=== PATIENT | female | born 1990 | race Caucasian/White ===

== ENCOUNTER → 2018-02-01 | Outpatient (CLI) | payer MEDICAID | LOC: HPND 12:45 | DX: O99.212 Obesity complicating pregnancy, second trimester (principal); E66.01 Morbid (severe) obesity due to excess calories; Z68.41 Body mass index [BMI] 40.0-44.9, adult; Z36.3 Encounter for antenatal screening for malformations; O36.80X0 Pregnancy with inconclusive fetal viability, not applicable or unspecified | CPT/HCPCS: 76805 ==

== ENCOUNTER 2018-07-21 07:56 | Inpatient (IN) ==
[2018-07-21] MEDS ORDERED: fentaNYL Citrate Inj 100 MCG/2 ML Ampul IV.PUSH PRN (08:13)
[2018-07-21] MEDS ORDERED: Sod Chloride 0.9% Inj 1,000 ML IV.CONT PRN (08:13)
[2018-07-21] MEDS ORDERED: Sodium Chlor 0.9% Inj 500 ML IV.SIG PRN (08:13)
[2018-07-21] MEDS ORDERED: Naloxone Inj 0.4 MG/ML Vial IV.PUSH PRN ×2 (08:13→17:56)
[2018-07-21] MEDS ORDERED: Citric Acid/Sodium Citrate Liq 30 ML UDC PO SCH (08:15)
--- NOTE | 2018-07-21 08:57 | P.HPOB ---
History of Present Illness Primary Care Physician: No Primary Care Physician [facility] History of Present Illness: at 41wks presents for scheduled IOL for post-dates. Denies any cxns, LOF, VB. +FM obhx: uncomplicated u/s follow up for possible LGA ; 8lb9oz last week x 2015 medhx: none surghx: none meds: PNV all: Aspirin - Inpatient Certification I certify that the inpatient services were ordered in accordance with Medicare regulations governing the order. This includes certification that hospital inpatient services are reasonable and necessary and in the case of services not specified as inpatient-only under 42 CFR 419.22(n), that they are appropriately provided as inpatient services in accordance to with the 2-midnight benchmark under 43 CFR 412.3(e) Estimated Total Length of Stay (Days): 3 Plans for Post Hospital Care: Home Review of Systems All other systems reviewed negative except as stated in HPI PMFSH - History History Provided By: Patient - Family History Family History: Family History (Last Updated 06/10/18 @ 05:22 by Kevyn Henry MD) Other Family history non-contributory - Tobacco History Second Hand Smoke Exposure: No Smoking Status: Never smoker - Alcohol History How Often Do You Have a Drink Containing Alcohol: Never - Substance Use History Substance History: No History of Abuse - Travel History Recent Travel in the [place] Within the Last 8 Weeks: No Recent Travel Out of the Country Within the Last 8 Weeks: No - Immunization History Hx Influenza Vaccine This Season: No Medications and Allergies Active Medications: Active Medications Citric Acid/Sodium Citrate (Sodium Citrate/Citric Acid Liq) 30 ml PO PULP OPERATOR [facility] Stop: 07/25/18 08:14 Fentanyl Citrate (Fentanyl Inj) 50 mcg IV.PUSH Q1H PRN PRN Reason: Pain Scale 3 - 5 Fentanyl Citrate (Fentanyl Inj) 100 mcg IV.PUSH Q1H PRN PRN Reason: PAIN SCALE 6 TO 10 Lactated Ringer's (Lr 1000 Ml Inj) 1,000 mls @ 3,000 mls/hr IV.SIG UNSCH PRN PRN Reason: compromise or epidural Sodium Chloride (Ns Inj) 500 mls @ 1,000 mls/hr IV.SIG UNSCH PRN PRN Reason: SEE LABEL COMMENTS Sodium Chloride (Ns Inj) 1,000 mls @ 100 mls/hr IV.CONT .Q10H PRN PRN Reason: SEE LABEL COMMENTS Oxytocin (Pitocin 30 Units/Ns 500 Ml Premix) 30 units in 500 mls @ 999 mls/hr IV.SIG BOLUS ONE Stop: 07/21/18 09:30 Lactated Ringer's (Lr 1000 Ml Inj) 1,000 mls @ 125 mls/hr IV.CONT .Q8H [facility] Lidocaine HCl (Xylocaine 1% Inj) 0.1 ml I-DERMAL PRN PRN PRN Reason: For IV start Stop: 07/24/18 08:12 Lidocaine HCl (Xylocaine 1% Inj) 10 ml INFILTRATN PRN PRN PRN Reason: For episiotomy repair Stop: 07/23/18 08:12 Mineral Oil (Muri-Lube Oil) 10 ml TOPICAL UNSCH PRN PRN Reason: PRN perineal massage Misoprostol (Cytotec) 25 mcg VAGINAL ONCE ONE Stop: 07/21/18 08:53 Misoprostol (Cytotec) 25 mcg VAGINAL ONCE PRN PRN Reason: For cervical ripening Stop: 07/22/18 12:53 Naloxone HCl (Narcan Inj) 0.1 mg IV.PUSH Q2M PRN PRN Reason: for opiate reversal Allergies Allergy/AdvReac Type Severity Reaction Status Date / Time aspirin Allergy Severe Anaphylaxis Verified 06/10/18 05:04 Home Medications Medication Instructions Recorded Confirmed Type vit,[id number] 1 tab PO DAILY 07/21/18 07/21/18 History [PNV 29-1] Exam Vital signs: Vital Signs 07/21/18 08:44 Pulse Rate 108 H Blood Pressure 134/80 Intake & Output 07/20/18 07/21/18 07/21/18 18:59 06:59 18:59 Weight 140.16 kg Other: Weight On Admission 140.16 kg Narrative: GENERAL: Well-nourished, well-developed patient. SKIN: Warm and dry. HEAD: Normocephalic and atraumatic. EYES: No scleral icterus. No injection or drainage. ENT: No nasal drainage noted. Mucous membranes pink. Airway patent. NECK: Supple, trachea midline. No JVD. CARDIOVASCULAR: Regular rate and rhythm without murmurs, gallops, or rubs. RESPIRATORY: Breath sounds equal bilaterally. No accessory muscle use. ABDOMEN/GI: Abdomen soft, non-tender, bowel sounds present, no rebound, no guarding Gravid to 41 weeks size Fundal Height:41 SVE: 0/th/floating GENITOURINARY: External Genitalia: intact and normal in appearance FHT's: Cat 1 , +accels, no decels no cxns on monitor EXTREMITIES: No cyanosis or edema. BACK: Nontender without obvious deformity. No CVA tenderness. NEUROLOGICAL: Awake and alert. Motor and sensory grossly within normal limits. Five out of 5 muscle strength in all muscle groups. Normal speech. Results - Labs CBC & Chem 7: 07/21/18 09:00 Caprini VTE Risk Assessment Caprini VTE Risk Assessment: No/Low Risk (score <= 1) Caprini Risk Assessment Model: Point Value = 1 Point Value = 2 Point Value = 3 Point Value = 5 Age 41-60 Minor surgery BMI > 25 kg/m2 Swollen legs Varicose veins or History of unexplained or recurrent spontaneous Oral contraceptives or hormone replacement Sepsis (< 1 month) Serious lung disease, including pneumonia (< 1 month) Abnormal pulmonary function Acute myocardial infarction Congestive heart failure (< 1 month) History of inflammatory bowel disease Medical patient at bed rest Age 61-74 Arthroscopic surgery Major open surgery (> 45 min) Laparoscopic surgery (> 45 min) Malignancy Confined to bed (> 72 hours) Immobilizing plaster cast Central venous access Age >= 75 History of VTE Family history of VTE Factor V Leiden Prothrombin [id number] Lupus anticoagulant Anticardiolipin antibodies Elevated serum homocysteine Heparin-induced thrombocytopenia Other congenital or acquired thrombophilia Stroke (< 1 month) Elective arthroplasty Hip, pelvis, or leg fracture Acute spinal cord injury (< 1 month) Prophylaxis Regimen: Total Risk Factor Score Risk Level Prophylaxis Regimen 0-1 Low Early ambulation 2 Moderate Order ONE of the following: *Sequential Compression Device (SCD) *Heparin 5000 units SQ BID 3-4 Higher Order ONE of the following medications: *Heparin 5000 units SQ TID *Enoxaparin/Lovenox 40 mg SQ daily (WT < 150 kg, CrCl > 30 mL/min) *Enoxaparin/Lovenox 30 mg SQ daily (WT < 150 kg, CrCl > 10-29 mL/min) *Enoxaparin/Lovenox 30 mg SQ BID (WT < 150 kg, CrCl > 30 mL/min) AND/OR *Sequential Compression Device (SCD) 5 or more Highest Order ONE of the following medications: *Heparin 5000 units SQ TID (Preferred with Epidurals) *Enoxaparin/Lovenox 40 mg SQ daily (WT < 150 kg, CrCl > 30 mL/min) *Enoxaparin/Lovenox 30 mg SQ daily (WT < 150 kg, CrCl > 10-29 mL/min) *Enoxaparin/Lovenox 30 mg SQ BID (WT < 150 kg, CrCl > 30 mL/min) AND *Sequential Compression Device (SCD) Assessment and Plan - Diagnosis (1) 41 weeks gestation of Code(s): Z3A.41 - 41 weeks gestation of Status: Acute Plan: at 41wks presents for scheduled IOL for post-dates. - Admit to L&D - Plan for cytotec induction, place at 9:30AM - Cat 1 tracing, will cont to monitor - MD aware
[2018-07-21] MEDS ORDERED: Oxytocin 30 Units/500ml Premix 30 UNITS/500 ML BAG IV.SIG ONE (09:00)
[2018-07-21 09:24] LABS: Baso % (Auto) 0.3 % (0.0-2.0); Eos # (Auto) 0.1 th/mm3 (0.0-0.4); Eos % (Auto) 0.9 % (0.0-4.0); Hematocrit 38.5 % (35.0-46.0); Hemoglobin 13.5 gm/dL (11.6-15.3); Lymph # (Auto) 1.8 th/mm3 (1.0-4.8); Lymph % (Auto) 17.2 % (9.0-44.0); Mean Corpuscular Hemoglobin 29.1 pg (27.0-34.0); Mean Corpuscular Volume 83.2 fL (80.0-100.0); Mean Platelet Volume 8.4 fL (7.0-11.0); Mono # (Auto) 0.6 th/mm3 (0.0-0.9); Mono % (Auto) 5.7 % (0.0-8.0); Neut # (Auto) 8.1 th/mm3 (1.8-7.7); Neut % (Auto) 75.9 % (16.0-70.0); Platelet Count 294 th/mm3 (150-450); Red Blood Count 4.62 mil/mm3 (4.00-5.30); Red Cell Distribution Width 16.2 % (11.6-17.2); White Blood Count 10.6 th/mm3 (4.0-11.0)
[2018-07-21 09:38] LABS: Bacteria,Urine Moderate /hpf; Bilirubin,Urine Negative (Negative); Clarity,Urine Cloudy (Clear); Color,Urine Yellow (Yellw/Straw); Glucose,Urine (UA) 150 mg/dL (Negative); Leukocyte Esterase,Urine Large (Negative); Mucus,Urine Few /lpf (Occasional); Nitrite,Urine Negative (Negative); Specific Gravity,Urine 1.018 (1.002-1.035); Squamous Epithelial Cell,Urine 43 /hpf (0-5); Transitional Epi Cells,Urine 1 /hpf
[2018-07-21 09:54] LABS: Amphetamine Urine With Conf Neg (Neg); Benzodiazepine Urine With Conf Neg (Neg)
[2018-07-21] MEDS: fentaNYL Citrate Inj 100 MCG/2 ML Ampul IV.PUSH PRN ×2 (13:49→14:58)
[2018-07-21] MEDS ORDERED: fentaNYL 2MCG-Bupiv 0.125% Epi 150 ML EPIDURAL ONE (15:20)
[2018-07-21] MEDS ORDERED: Lidocaine 1%/Epinephrine 1:200,000 PF Inj 30 ML Vial ONE (15:21)
[2018-07-21] MEDS ORDERED: Diphtheria/Tetanus/Pertussis Vaccine Inj 0.5 ML Syringe IM ONE (16:00)
[2018-07-21] MEDS ORDERED: Measles/Mumps/Rubella Vaccine Inj 0.5 ML Vial SQ ONE (16:00)
--- NOTE | 2018-07-21 17:52 | P.OBDELI ---
Weeks Gestation: 41 Patient Started Active Labor: No Medical Induction of Labor: Yes (Post dates ) Medical Induction Start Date: 07/21/18 Artificial Rupture of Membrane: Yes Artificial ROM Date: 07/21/18 Episiotomy: none Vaginal Delivery: Normal Presentation: Occiput anterior Nuchal Cord: x1 Delayed Cord Clamping (45 sec): Yes Placenta: Spontaneous delivery Laceration: Perineal, 2 deg Repair: Chromic running Estimated blood loss (mL): 100 : Female Female A Infant Delivery Date: 07/21/18 Delivery Time: 17:21 Weight: 3.8 kg score (1 min): 8 score (5 min): 9 Additional Information: Delivered by Dr. Linares. Supervised by Dr. Davis
[2018-07-21] MEDS ORDERED: fentaNYL 2MCG-Bupiv 0.125% Epi 150 ML EPIDURAL PRN (17:53)
[2018-07-21] MEDS ORDERED: fentaNYL Citrate Inj 100 MCG/2 ML Ampul EPIDURAL ONE (17:53)
[2018-07-21] MEDS ORDERED: Bisacodyl 10 MG Supp RECTAL PRN (17:56)
[2018-07-21] MEDS ORDERED: Benzocaine 20% Top Spray 60 ML Can TOPICAL PRN (17:56)
[2018-07-21] MEDS ORDERED: Oxytocin 30 Units/500ml Premix 30 UNITS/500 ML BAG IV.CONT PRN (17:56)
[2018-07-21] MEDS ORDERED: Acetaminophen 325 MG Tablet PO PRN (17:56)
[2018-07-21] MEDS ORDERED: Zolpidem Tartrate 5 MG Tablet PO PRN (21:00)
[2018-07-21] MEDS: Senna/Docusate Sodium 8.6/50 MG Tablet PO SCH (22:20)
[2018-07-22] MEDS: Witch Hazel 50%/Glyderin 12.5% 40 Pad Jar RECTAL PRN ×2 (01:13→01:14)
--- NOTE | 2018-07-22 08:03 | P.PNOB ---
Subjective Post day: 1 Interval history: Patient's pain is well-controlled. Patient reports eating and drinking without any nausea or vomiting. Patient reports minimal bleeding. Patient has passed gas but no bowel movements. Patient is walking without lower extremity pain or shortness of breath. Objective Vital Signs/I&O: Vital Signs 07/21/18 08:44 07/21/18 08:55 07/21/18 09:13 Temperature 98.9 F Pulse Rate 108 H 108 H Respiratory Rate 16 Blood Pressure 134/80 07/21/18 09:42 07/21/18 11:41 07/21/18 11:43 Temperature 98.7 F Pulse Rate 97 H 90 Respiratory Rate Blood Pressure 133/78 141/83 H 07/21/18 12:40 07/21/18 14:57 07/21/18 14:58 Temperature 98.8 F Pulse Rate 91 H 98 H Respiratory Rate Blood Pressure 145/79 H 128/100 H 07/21/18 15:35 07/21/18 15:40 07/21/18 15:45 Temperature Pulse Rate 119 H 125 H 111 H Respiratory Rate Blood Pressure 152/83 H 147/81 H 123/64 07/21/18 15:48 07/21/18 15:50 07/21/18 15:55 Temperature Pulse Rate 110 H 110 H Respiratory Rate 18 Blood Pressure 142/87 H 07/21/18 16:01 07/21/18 16:10 07/21/18 16:35 Temperature Pulse Rate 112 H 111 H 116 H Respiratory Rate Blood Pressure 129/63 120/51 L 85/67 L 07/21/18 16:40 07/21/18 17:01 07/21/18 17:32 Temperature Pulse Rate 143 H 128 H 120 H Respiratory Rate Blood Pressure 138/61 143/60 H 131/43 L 07/21/18 17:55 07/21/18 17:56 07/21/18 18:15 Temperature 98.1 F Pulse Rate 113 H 104 H Respiratory Rate 18 Blood Pressure 129/62 101/51 L 07/21/18 18:30 07/21/18 18:45 07/21/18 19:01 Temperature Pulse Rate 109 H 102 H 97 H Respiratory Rate Blood Pressure 114/53 L 138/74 116/75 07/21/18 19:15 07/21/18 19:23 07/21/18 19:45 Temperature 98.9 F Pulse Rate 107 H 106 H Respiratory Rate 18 18 Blood Pressure 113/55 L 113/65 Intake & Output 07/21/18 07/22/18 07/22/18 18:59 06:59 18:59 Intake Total 1999 Balance 1999 Weight 140.16 kg Intake: IV 1999 LR 1000 mL Inj 1,000 ML @ 125 1999 mls/hr IV.CONT .Q8H [facility] Rx#: [id number] Other: Weight On Admission 140.16 kg Result Diagrams: 07/21/18 09:00 Objective Remarks: GENERAL: Well-nourished, well-developed patient. CARDIOVASCULAR: Regular rate and rhythm without murmurs, gallops, or rubs. RESPIRATORY: Breath sounds equal bilaterally. No accessory muscle use. ABDOMEN/GI: Abdomen soft, non-tender. Fundus: Firm, non-tender at umbilicus. GENITOURINARY: Light to moderate bleeding. EXTREMITIES: No cyanosis or edema, non-tender, without signs of DVT. Medications and IVs: Active Medications Acetaminophen (Tylenol) 650 mg PO Q4H PRN PRN Reason: PAIN SCALE 1 TO 2 Last Admin: 07/21/18 22:20 Dose: 650 mg Al Hydroxide/Mg Hydroxide (Milk Of Magnesia Liq) 30 ml PO Q12H PRN PRN Reason: Mild Constipation Benzocaine (Americaine 20% Top [place]) 1 spray TOPICAL Q4H PRN PRN Reason: For Perineum Discomfort Last Admin: 07/22/18 01:18 Dose: 1 spray Bisacodyl (Dulcolax Supp) 10 mg RECTAL DAILY PRN PRN Reason: SEVERE CONSITIPATION Ephedrine Sulfate (Ephedrine/Ns Syringe) 10 mg IV.PUSH UNSCH PRN PRN Reason: SEE LABEL COMMENTS Stop: 07/22/18 17:53 Last Admin: 07/21/18 18:26 Dose: 10 mg Fentanyl/Bupivacaine/Sodium Chlor (Fentanyl 2 Mcg-Bupiv 0.125% Epi) 150 mls @ 12 mls/hr EPIDURAL PRN PRN PRN Reason: for Labor Pain Last Admin: 07/21/18 18:26 Dose: 12 mls/hr Oxytocin (Pitocin 30 Units/Ns 500 Ml Premix) 30 units in 500 mls @ 100 mls/hr IV.CONT UNSCH PRN PRN Reason: Heavy bleeding Ibuprofen (Motrin) 800 mg PO Q8H PRN PRN Reason: For Cramping Lactulose (Lactulose Liq) 30 ml PO DAILY PRN PRN Reason: SEVERE CONSITIPATION Miscellaneous Information (Misc Information) 1 each OTHER UNSCH PRN PRN Reason: SEE LABEL COMMENTS Stop: 07/22/18 17:53 Miscellaneous Information (Misc Information) 1 each OTHER UNSCH PRN PRN Reason: SEE LABEL COMMENTS Stop: 07/22/18 17:53 Misoprostol (Cytotec) 25 mcg VAGINAL ONCE PRN PRN Reason: For cervical ripening Stop: 07/22/18 12:53 Naloxone HCl (Narcan Inj) 0.1 mg IV.PUSH Q2M PRN PRN Reason: for opiate reversal Ondansetron HCl (Zofran Odt) 4 mg PO Q6H PRN PRN Reason: NAUSEA OR VOMITING Oxycodone/Acetaminophen (Percocet 5/325 Mg) 1 tab PO Q4H PRN PRN Reason: PAIN SCALE 3 TO 5 Last Admin: 07/22/18 02:20 Dose: 1 tab Senna/Docusate Sodium (Natividad-Colace) 1 tab PO BID [facility] Last Admin: 07/21/18 22:20 Dose: 1 tab Sennosides (Senokot) 17.2 mg PO Q12H PRN PRN Reason: Moderate Constipation Sodium Chloride (Ns Flush) 2 ml IV.FLUSH BID [facility] Last Admin: 07/21/18 23:20 Dose: Not Given Sodium Chloride (Ns Flush) 2 ml IV.FLUSH PRN PRN PRN Reason: FLUSH AFTER USING IV ACCESS Witch Raisa/Glycerin (Tucks Pads) 1 applicatio RECTAL QID PRN PRN Reason: HEMORRHOIDS Last Admin: 07/22/18 01:14 Dose: 1 applicatio Zolpidem Tartrate (Ambien) 5 mg PO HS PRN PRN Reason: SLEEP Assessment and Plan - Diagnosis (1) Vaginal delivery Code(s): O80 - Encounter for full-term uncomplicated delivery Status: Acute - Plan Patient was counseled to do 6 weeks of pelvic rest. Patient was counseled to follow up in 6 weeks. Patient requested follow-up and contraception. --AF VSS --Continue routine care --Motrin and Percocet when necessary for pain --Encourage OOB --Pelvic rest for 6 weeks will need follow-up appointment at that time. --Contraception: unsure, will cont to discuss --Anticipate discharge at 24hrs ppm (6PM tonight) or tomorrow
[2018-07-22 09:40] VITALS: TEMP 97.6
[2018-07-22] MEDS: Senna/Docusate Sodium 8.6/50 MG Tablet PO SCH ×2 (09:44→21:39)
[2018-07-22] MEDS ORDERED: Famotidine 20 MG Tablet PO ONE (15:00)
--- NOTE | 2018-07-22 15:00 | P.PN ---
Subjective Interval history: [facility] Attending Called to see patient who reports she has an anaphylactic reaction to ASA and ibuprofen. She was asked if she can take Motrin and indicated she has no problems with Motrin because she didn't realize that Motrin was ibuprofen. She reports she took Motrin at 10:50 am and started feeling itchy about 1/2 to 1 hour ago and started feeling like her throat was closing at 14:31. We called for [facility] and immediately came to patient's bedside. VSS, SpO2 99%. On exam, patient is sitting up in bed, appears anxious, but does not appear to be having difficulty breathing but appears. Spoke with anesthesia, Dr. Mccallum, and Dr. Trevino (Elevator Runner). Dr. Trevino agreed with administration of benadryl ( patient had already received 50 mg IV upon our arrival to bedside), and agreed with IV steroids and zantac for one dose. Solumedrol 60mg ordered IV and zantac 150mg IV ordered. Dr. Trevino will come to evaluate patient as well. Will continue scheduled benadryl x24h, monitor closely. Physical Exam Vital signs: Vital Signs 07/21/18 14:57 07/21/18 14:58 07/21/18 15:35 Temperature 98.8 F Pulse Rate 98 H 119 H Respiratory Rate Blood Pressure 128/100 H 152/83 H 07/21/18 15:40 07/21/18 15:45 07/21/18 15:48 Temperature Pulse Rate 125 H 111 H Respiratory Rate 18 Blood Pressure 147/81 H 123/64 07/21/18 15:50 07/21/18 15:55 07/21/18 16:01 Temperature Pulse Rate 110 H 110 H 112 H Respiratory Rate Blood Pressure 142/87 H 129/63 07/21/18 16:10 07/21/18 16:35 07/21/18 16:40 Temperature Pulse Rate 111 H 116 H 143 H Respiratory Rate Blood Pressure 120/51 L 85/67 L 138/61 07/21/18 17:01 07/21/18 17:32 07/21/18 17:55 Temperature Pulse Rate 128 H 120 H 113 H Respiratory Rate 18 Blood Pressure 143/60 H 131/43 L 129/62 07/21/18 17:56 07/21/18 18:15 07/21/18 18:30 Temperature 98.1 F Pulse Rate 104 H 109 H Respiratory Rate Blood Pressure 101/51 L 114/53 L 07/21/18 18:45 07/21/18 19:01 07/21/18 19:15 Temperature Pulse Rate 102 H 97 H 107 H Respiratory Rate Blood Pressure 138/74 116/75 113/55 L 07/21/18 19:23 07/21/18 19:45 07/22/18 08:00 Temperature 98.9 F 97.6 F Pulse Rate 106 H 89 Respiratory Rate 18 18 20 Blood Pressure 113/65 116/74 Intake & Output 07/21/18 07/22/18 07/22/18 18:59 06:59 18:59 Intake Total 1999 Balance 1999 Weight 140.16 kg Intake: IV 1999 LR 1000 mL Inj 1,000 ML @ 125 1999 mls/hr IV.CONT .Q8H [facility] Rx#: [id number] Other: Weight On Admission 140.16 kg Results - Labs CBC & Chem 7: 07/21/18 09:00 Microbiology 07/21/18 08:30 Clean Catch Urine Urine Culture - Final 50-100,000 cfu/mL mixed gram positive christie (probable contaminants)
--- NOTE | 2018-07-22 15:42 | P.CONCC ---
History of Present Illness Service: Critical care medicine Consult date: 07/22/18 Reason for Consult: Potential adverse reaction to medication Primary Care Provider: No Primary Care Physician Chief Complaint: , delivery 07/21 History of Present Illness: I was asked to see this 27-year-old female 1 day status post medically induced labor and delivery of a normal girl. She inadvertently consumed Motrin because she was not aware that it was similar to ibuprofen. She has a history of adverse reactions to aspirin and NSAIDs manifesting as hives, throat swelling, respiratory distress. I am seen her about 2 hours after the ingestion. She has appropriately received Benadryl and Zantac and will receive Solu-Medrol immediately as well. She is breathing comfortably with no respiratory distress whatsoever. Her airway is widely patent without evidence of stridor or obstruction. Her breath sounds are clear without wheezes or obstructive noises. Review of Systems No chest pain, shortness of breath, hives, itching, throat swelling, vomiting. No lightheadedness. No palpitations. PMFSH - History History Provided By: Patient - Family History Family History: Family History (Last Updated 06/10/18 @ 05:22 by Kevyn Henry MD) Other Family history non-contributory - Tobacco History Second Hand Smoke Exposure: No Smoking Status: Never smoker - Alcohol History How Often Do You Have a Drink Containing Alcohol: Never - Substance Use History Substance History: No History of Abuse - Travel History Recent Travel in the [place] Within the Last 8 Weeks: No Recent Travel Out of the Country Within the Last 8 Weeks: No - Immunization History Hx Influenza Vaccine This Season: No Medications and Allergies Active Medications: Active Medications Acetaminophen (Tylenol) 650 mg PO Q4H PRN PRN Reason: PAIN SCALE 1 TO 2 Last Admin: 07/21/18 22:20 Dose: 650 mg Al Hydroxide/Mg Hydroxide (Milk Of Marilin [place]) 30 ml PO Q12H PRN PRN Reason: Mild Constipation Benzocaine (Americaine 20% Top [place]) 1 spray TOPICAL Q4H PRN PRN Reason: For Perineum Discomfort Last Admin: 07/22/18 01:18 Dose: 1 spray Bisacodyl (Dulcolax Supp) 10 mg RECTAL DAILY PRN PRN Reason: SEVERE CONSITIPATION Diphenhydramine HCl (Benadryl) 50 mg PO Q6H [facility] Ephedrine Sulfate (Ephedrine/Ns Syringe) 10 mg IV.PUSH UNSCH PRN PRN Reason: SEE LABEL COMMENTS Stop: 07/22/18 17:53 Last Admin: 07/21/18 18:26 Dose: 10 mg Fentanyl/Bupivacaine/Sodium Chlor (Fentanyl 2 Mcg-Bupiv 0.125% Epi) 150 mls @ 12 mls/hr EPIDURAL PRN PRN PRN Reason: for Labor Pain Last Admin: 07/21/18 18:26 Dose: 12 mls/hr Oxytocin (Pitocin 30 Units/Ns 500 Ml Premix) 30 units in 500 mls @ 100 mls/hr IV.CONT UNSCH PRN PRN Reason: Heavy bleeding Ibuprofen (Motrin) 800 mg PO Q8H PRN PRN Reason: For Cramping Last Admin: 07/22/18 12:53 Dose: 800 mg Lactulose (Lactulose Liq) 30 ml PO DAILY PRN PRN Reason: SEVERE CONSITIPATION Methylprednisolone Sodium Succinate (Solumedrol Inj) 60 mg IV.PUSH Q6H [facility] Stop: 07/23/18 10:01 Miscellaneous Information (Misc Information) 1 each OTHER UNSCH PRN PRN Reason: SEE LABEL COMMENTS Stop: 07/22/18 17:53 Miscellaneous Information (Misc Information) 1 each OTHER UNSCH PRN PRN Reason: SEE LABEL COMMENTS Stop: 07/22/18 17:53 Naloxone HCl (Narcan Inj) 0.1 mg IV.PUSH Q2M PRN PRN Reason: for opiate reversal Non-Formulary Medication ( Vit,[id number] [Pnv 29-1]) 1 tab PO DAILY [facility] Ondansetron HCl (Zofran Odt) 4 mg PO Q6H PRN PRN Reason: NAUSEA OR VOMITING Oxycodone/Acetaminophen (Percocet 5/325 Mg) 1 tab PO Q4H PRN PRN Reason: PAIN SCALE 3 TO 5 Last Admin: 07/22/18 12:53 Dose: 1 tab Ranitidine HCl (Zantac Liq) 150 mg PO BID [facility] Senna/Docusate Sodium (Natividad-Colace) 1 tab PO BID [facility] Last Admin: 07/22/18 09:44 Dose: 1 tab Sennosides (Senokot) 17.2 mg PO Q12H PRN PRN Reason: Moderate Constipation Sodium Chloride (Ns Flush) 2 ml IV.FLUSH BID [facility] Last Admin: 07/22/18 09:44 Dose: 2 ml Sodium Chloride (Ns Flush) 2 ml IV.FLUSH PRN PRN PRN Reason: FLUSH AFTER USING IV ACCESS Witch Raisa/Glycerin (Tucks Pads) 1 applicatio RECTAL QID PRN PRN Reason: HEMORRHOIDS Last Admin: 07/22/18 01:14 Dose: 1 applicatio Zolpidem Tartrate (Ambien) 5 mg PO HS PRN PRN Reason: SLEEP Allergies Allergy/AdvReac Type Severity Reaction Status Date / Time aspirin Allergy Severe Anaphylaxis Verified 06/10/18 05:04 NSAIDS (Non-Steroidal Allergy Anaphylaxis Verified 07/22/18 14:59 Anti-Inflamma Home Medications Medication Instructions Recorded Confirmed Type vit,[id number] 1 tab PO DAILY 07/21/18 07/21/18 History [PNV 29-1] Physical Exam Vital signs: Vital Signs 07/21/18 15:35 07/21/18 15:40 07/21/18 15:45 Temperature Pulse Rate 119 H 125 H 111 H Respiratory Rate Blood Pressure 152/83 H 147/81 H 123/64 07/21/18 15:48 07/21/18 15:50 07/21/18 15:55 Temperature Pulse Rate 110 H 110 H Respiratory Rate 18 Blood Pressure 142/87 H 07/21/18 16:01 07/21/18 16:10 07/21/18 16:35 Temperature Pulse Rate 112 H 111 H 116 H Respiratory Rate Blood Pressure 129/63 120/51 L 85/67 L 07/21/18 16:40 07/21/18 17:01 07/21/18 17:32 Temperature Pulse Rate 143 H 128 H 120 H Respiratory Rate Blood Pressure 138/61 143/60 H 131/43 L 07/21/18 17:55 07/21/18 17:56 07/21/18 18:15 Temperature 98.1 F Pulse Rate 113 H 104 H Respiratory Rate 18 Blood Pressure 129/62 101/51 L 07/21/18 18:30 07/21/18 18:45 07/21/18 19:01 Temperature Pulse Rate 109 H 102 H 97 H Respiratory Rate Blood Pressure 114/53 L 138/74 116/75 07/21/18 19:15 10/24/18 19:23 07/21/18 19:45 Temperature 98.9 F Pulse Rate 107 H 106 H Respiratory Rate 18 18 Blood Pressure 113/55 L 113/65 07/22/18 08:00 Temperature 97.6 F Pulse Rate 89 Respiratory Rate 20 Blood Pressure 116/74 Intake & Output 07/21/18 07/22/18 07/22/18 18:59 06:59 18:59 Intake Total 1999 Balance 1999 Weight 140.16 kg Intake: IV 1999 LR 1000 mL Inj 1,000 ML @ 125 1999 mls/hr IV.CONT .Q8H [facility] Rx#: [id number] Other: Weight On Admission 140.16 kg Narrative: GENERAL: Comfortable, calm, interactive SKIN: Warm and dry. No hives or erythema. HEAD: Normocephalic and atraumatic. EYES: No injection or swelling ENT: No lip swelling or periorbital edema. Airway is widely patent without stridor or any obstructive sounds. NECK: Supple, no swelling. CARDIOVASCULAR: Normal S1, S2. No murmur or rub. No JVD, normal rate RESPIRATORY: Breath sounds are clear bilaterally with normal respiratory excursions and comfortable pattern. No wheezes, crackles or obstructive noises. NEURO: Alert, conversant, speech is clear, no hoarseness to voice. Moves 4 limbs spontaneously. Calm demeanor, no evidence of anxiety, anxiousness, agitation. Assessment and Plan - Problem List (1) 41 weeks gestation of Code(s): Z3A.41 - 41 weeks gestation of Status: Acute (2) Vaginal delivery Code(s): O80 - Encounter for full-term uncomplicated delivery Status: Acute - Assessment and Plan Plan: Overall assessment: This woman has no signs of an adverse reaction to any ingested medication. The specific concern is for Motrin she consumed about 2 hours ago. She has had adverse reactions to nonsteroidal anti-inflammatories in the past. At present she is fine and has received good immediate care. She will continue with steroids, Benadryl, Zantac scheduled for the next 24 hours and the transfer station operator service is aware of her should any problems arise.
[2018-07-22] MEDS: MethylPREDNISolone Sod Succinate Inj 125 MG/2 ML Vial IV.PUSH SCH ×2 (15:59→21:40)
[2018-07-22 17:45] VITALS: O2SAT 99
[2018-07-22] MEDS: Famotidine 20 MG Tablet PO SCH (21:40)
[2018-07-23] MEDS: MethylPREDNISolone Sod Succinate Inj 125 MG/2 ML Vial IV.PUSH SCH ×2 (04:54→09:50)
[2018-07-23 08:27] VITALS: BP 110/57
[2018-07-23 08:28] VITALS: PULSE 76; RESP 18
[2018-07-23] MEDS: Senna/Docusate Sodium 8.6/50 MG Tablet PO SCH (08:47)
[2018-07-23] MEDS: Famotidine 20 MG Tablet PO SCH (08:47)
--- NOTE | 2018-07-23 08:50 | P.PNOB ---
Subjective Post day: 2 Interval history: Patient's pain is well-controlled. Patient reports eating and drinking without any nausea or vomiting. Patient reports minimal bleeding. Patient has passed gas but no bowel movements. Patient is walking without lower extremity pain or shortness of breath. Objective Vital Signs/I&O: Vital Signs 07/22/18 14:35 07/22/18 14:40 07/22/18 14:45 Temperature Pulse Rate 109 H 113 H 98 H Respiratory Rate 20 20 20 Blood Pressure 139/69 142/67 H 133/77 Pulse Oximetry 07/22/18 15:05 07/22/18 20:00 07/23/18 08:00 Temperature 97.6 F 97.6 F Pulse Rate 109 H 76 Respiratory Rate 19 18 Blood Pressure 137/76 110/57 L Pulse Oximetry 99 Result Diagrams: 07/21/18 09:00 Objective Remarks: GENERAL: Well-nourished, well-developed patient. CARDIOVASCULAR: Regular rate and rhythm without murmurs, gallops, or rubs. RESPIRATORY: Breath sounds equal bilaterally. No accessory muscle use. ABDOMEN/GI: Abdomen soft, non-tender. Fundus: Firm, non-tender at umbilicus. GENITOURINARY: Light to moderate bleeding. EXTREMITIES: No cyanosis or edema, non-tender, without signs of DVT. Medications and IVs: Active Medications Acetaminophen (Tylenol) 650 mg PO Q4H PRN PRN Reason: PAIN SCALE 1 TO 2 Last Admin: 07/21/18 22:20 Dose: 650 mg Al Hydroxide/Mg Hydroxide (Milk Of Magnesia Liq) 30 ml PO Q12H PRN PRN Reason: Mild Constipation Benzocaine (Americaine 20% Top [place]) 1 spray TOPICAL Q4H PRN PRN Reason: For Perineum Discomfort Last Admin: 07/22/18 01:18 Dose: 1 spray Bisacodyl (Dulcolax Supp) 10 mg RECTAL DAILY PRN PRN Reason: SEVERE CONSITIPATION Diphenhydramine HCl (Benadryl) 50 mg PO Q6H [facility] Last Admin: 07/23/18 04:54 Dose: 50 mg Famotidine (Pepcid) 20 mg PO BID [facility] Last Admin: 07/22/18 21:40 Dose: 20 mg Fentanyl/Bupivacaine/Sodium Chlor (Fentanyl 2 Mcg-Bupiv 0.125% Epi) 150 mls @ 12 mls/hr EPIDURAL PRN PRN PRN Reason: for Labor Pain Last Admin: 07/21/18 18:26 Dose: 12 mls/hr Oxytocin (Pitocin 30 Units/Ns 500 Ml Premix) 30 units in 500 mls @ 100 mls/hr IV.CONT UNSCH PRN PRN Reason: Heavy bleeding Lactulose (Lactulose Liq) 30 ml PO DAILY PRN PRN Reason: SEVERE CONSITIPATION Methylprednisolone Sodium Succinate (Solumedrol Inj) 60 mg IV.PUSH Q6H [facility] Stop: 07/23/18 10:01 Last Admin: 07/23/18 04:54 Dose: 60 mg Naloxone HCl (Narcan Inj) 0.1 mg IV.PUSH Q2M PRN PRN Reason: for opiate reversal Ondansetron HCl (Zofran Odt) 4 mg PO Q6H PRN PRN Reason: NAUSEA OR VOMITING Oxycodone/Acetaminophen (Percocet 5/325 Mg) 1 tab PO Q4H PRN PRN Reason: PAIN SCALE 3 TO 5 Last Admin: 07/23/18 03:13 Dose: 1 tab Vit/Calcium/Iron/Folic Ac (Stuartnatal Plus 3) 1 tab PO DAILY [facility] Senna/Docusate Sodium (Natividad-Colace) 1 tab PO BID [facility] Last Admin: 07/22/18 21:39 Dose: 1 tab Sennosides (Senokot) 17.2 mg PO Q12H PRN PRN Reason: Moderate Constipation Sodium Chloride (Ns Flush) 2 ml IV.FLUSH BID [facility] Last Admin: 07/22/18 21:41 Dose: 2 ml Sodium Chloride (Ns Flush) 2 ml IV.FLUSH PRN PRN PRN Reason: FLUSH AFTER USING IV ACCESS Last Admin: 07/23/18 05:03 Dose: 2 ml Witch Raisa/Glycerin (Tucks Pads) 1 applicatio RECTAL QID PRN PRN Reason: HEMORRHOIDS Last Admin: 07/22/18 01:14 Dose: 1 applicatio Zolpidem Tartrate (Ambien) 5 mg PO HS PRN PRN Reason: SLEEP Assessment and Plan - Diagnosis (1) Vaginal delivery Code(s): O80 - Encounter for full-term uncomplicated delivery Status: Acute (2) Blurry vision Code(s): H53.8 - Other visual disturbances Status: Acute - Plan 27 y/o F, delivered at 41wks gestation, now PPD#2 Patient was counseled to do 6 weeks of pelvic rest. Patient was counseled to follow up in 6 weeks. Patient requested follow-up and contraception. --AF VSS --Continue routine care --Motrin and Percocet when necessary for pain --Encourage OOB --Pelvic rest for 6 weeks will need follow-up appointment at that time. --Contraception: unsure, will cont to discuss --Anticipate discharge today pending stable BPs Cont to complain of blurry vision -- no headache, RUQ pain -- BPs normal
[2018-07-23] MEDS ORDERED: Prenatal Vit/Ca/Iron/Folic Acid Tablet PO SCH (09:00)
== END 2018-07-23 13:11 | disposition home or self-care (01) ==
LOC: H2E 07:56 → H1EA 19:33
PROVIDERS: ADMIT Obstetrics & Gynecology; ATTEND Obstetrics & Gynecology